=== PATIENT | male | born 1955 | race Caucasian/White ===

== ENCOUNTER → 2016-10-20 | Outpatient (CLI) | payer MEDICARE ==
[2016-10-20 09:16] LABS: ANION GAP 13 (5-19); BLOOD UREA NITROGEN 22 mg/dL (7-20); CALCIUM 9.8 mg/dL (8.4-10.2); CARBON DIOXIDE 25 mmol/L (22-30); CHLORIDE 102 mmol/L (98-107); CHOLESTEROL 216.26 mg/dL (0-200); CREATININE RESULT 1.05 mg/dL (0.52-1.25); Direct HDL 57 mg/dL (>40); GLUCOSE 105 mg/dL (75-110); POTASSIUM 4.9 mmol/L (3.6-5.0); TRIGLYCERIDES 287 mg/dL (<150)
[2016-10-20 09:29] LABS: DIRECT LDL 60 mg/dL (<100)
[2016-10-20 09:30] LABS: VLDL CHOLESTEROL 57.4 mg/dL (10-31)
== END ==
LOC: OD 07:47
PROVIDERS: ATTEND Internal Medicine Cardiovascular Disease
DX: R73.09 Other abnormal glucose (principal); I10 Essential (primary) hypertension; E78.5 Hyperlipidemia, unspecified; I25.119 Atherosclerotic heart disease of native coronary artery with unspecified angina pectoris
CPT/HCPCS: 36415; 80048; 80061; 83036

== ENCOUNTER → 2016-10-23 | Outpatient (CLI) | payer MEDICARE | LOC: OD 10:20 | PROVIDERS: ATTEND Family Medicine | DX: C61 Malignant neoplasm of prostate (principal) | CPT/HCPCS: 36415; 84153 ==

== ENCOUNTER → 2017-01-16 | Outpatient (CLI) | payer MEDICARE ==
[2017-01-16 12:15] LABS: ANION GAP 14 (5-19); BLOOD UREA NITROGEN 18 mg/dL (7-20); CALCIUM 9.5 mg/dL (8.4-10.2); CARBON DIOXIDE 26 mmol/L (22-30); CHLORIDE 101 mmol/L (98-107); CHOLESTEROL 216.28 mg/dL (0-200); Direct HDL 56 mg/dL (>40); GLUCOSE 102 mg/dL (75-110); POTASSIUM 4.5 mmol/L (3.6-5.0); SODIUM 140.8 mmol/L (137-145); TRIGLYCERIDES 249 mg/dL (<150)
[2017-01-16 12:28] LABS: DIRECT LDL 71 mg/dL (<100)
[2017-01-16 12:32] LABS: VLDL CHOLESTEROL 49.8 mg/dL (10-31)
== END ==
LOC: OD 10:22
PROVIDERS: ATTEND Internal Medicine Cardiovascular Disease
DX: I10 Essential (primary) hypertension (principal); I25.10 Atherosclerotic heart disease of native coronary artery without angina pectoris; E78.5 Hyperlipidemia, unspecified; I42.9 Cardiomyopathy, unspecified; R73.09 Other abnormal glucose
CPT/HCPCS: 36415; 80048; 80061; 83036

== ENCOUNTER → 2017-04-22 | Outpatient (CLI) | payer MEDICARE ==
[2017-04-22 09:46] LABS: ANION GAP 13 (5-19); BLOOD UREA NITROGEN 24 mg/dL (7-20); CALCIUM 9.3 mg/dL (8.4-10.2); CARBON DIOXIDE 26 mmol/L (22-30); CHLORIDE 100 mmol/L (98-107); CHOLESTEROL 218.41 mg/dL (0-200); CREATININE RESULT 1.12 mg/dL (0.52-1.25); Direct HDL 56 mg/dL (>40); GLUCOSE 108 mg/dL (75-110); POTASSIUM 5.2 mmol/L (3.6-5.0); SODIUM 138.5 mmol/L (137-145); TRIGLYCERIDES 322 mg/dL (<150)
[2017-04-22 09:57] LABS: DIRECT LDL 60 mg/dL (<100)
[2017-04-22 09:59] LABS: VLDL CHOLESTEROL 64.4 mg/dL (10-31)
== END ==
LOC: OD 08:25
PROVIDERS: ATTEND Internal Medicine Cardiovascular Disease
DX: R73.09 Other abnormal glucose (principal); I10 Essential (primary) hypertension; E78.5 Hyperlipidemia, unspecified; E74.9 Disorder of carbohydrate metabolism, unspecified; I51.7 Cardiomegaly
CPT/HCPCS: 36415; 80048; 80061; 83036

== ENCOUNTER → 2017-06-16 | Outpatient (CLI) | payer MEDICARE | LOC: OD 09:49 | PROVIDERS: ATTEND Urology | DX: C61 Malignant neoplasm of prostate (principal) | CPT/HCPCS: 36415; 84153 ==

== ENCOUNTER → 2017-07-10 | Outpatient (CLI) | payer MEDICARE ==
--- NOTE | 2017-07-10 12:26 | RADIOLOGY REPORT (SQ) ---
EXAM DESCRIPTION: NM WHOLE BODY BONE SCAN COMPLETED DATE/TIME: 07/10/2017 11:57 am REASON FOR STUDY: INCREASING PSA (R97.21), PROSTATE CA (C61), L SPINE PAIN (M54.5) R97.21 RISING PS A FOL TREATMENT FOR MALIGNANT NEOPLASM OF NE COMPARISON: None RADIONUCLIDE AND DOSE: 20.8 millicuries Tc99m MDP. The route of agent administration: Intravenous. ADDITIONAL DRUGS AND DOSES: None. TECHNIQUE: Routine delayed images at 3 hours post radionuclide injection acquired of the bony skelet on including anterior and posterior whole-body projections and additional focused images as needed. LIMITATIONS: None. FINDINGS: BONES: No skeletal areas of increase tracer activity to suggest metastatic disease is seen . There is a focal area of increase tracer activity at the level of the left knee presumably degener ative in nature. No other significant skeletal abnormalities were identified KIDNEYS: Symmetric excretion without obstruction. OTHER: No other significant finding. IMPRESSION: No evidence for skeletal metastatic disease. Other findings as noted above COMMENT: Quality measure 147: TECHNICAL DOCUMENTATION: JOB ID: [id number] [employer]- All Rights Reserved
== END ==
LOC: RAD 08:17
PROVIDERS: ATTEND Urology
DX: C61 Malignant neoplasm of prostate (principal); R97.21 Rising PSA following treatment for malignant neoplasm of prostate; M54.5 Low back pain
CPT/HCPCS: 78306; A9561; Q9969

== ENCOUNTER → 2018-02-01 | Outpatient (CLI) | payer MEDICARE | LOC: OD 09:38 | PROVIDERS: ATTEND Urology | DX: C61 Malignant neoplasm of prostate (principal) | CPT/HCPCS: 36415; 84153 ==

== ENCOUNTER → 2019-11-28 | Outpatient (CLI) | payer MEDICARE ==
--- NOTE | 2019-11-29 15:02 | RADIOLOGY REPORT (SQ) ---
EXAM DESCRIPTION: CTA ABD AORTA AND EXTREMITY COMPLETED DATE/TIME: 11/28/2019 3:55 pm REASON FOR STUDY: I73.9 PERIPHERAL VASCULAR DISEASE, UNSPECIFIED I73.9 PERIPHERAL VASCULAR DISEASE, UNSPECIFIED COMPARISON: None. TECHNIQUE: CT scan of the body and lower extremities performed with and without intravenous contrast using helical scanning technique with dynamic intravenous contrast injection. Images reviewed with l mina, soft tissue, and bone windows. Reconstructed coronal and sagittal MPR images reviewed. All image s stored on PACS. Advanced 3D imaging as volume-rendering, MIPs, SSD performed? yes All CT scanners at this facility use dose modulation, iterative reconstruction, and/or weight based d osing when appropriate to reduce radiation dose to as low as reasonably achievable (ALARA). [facility]: Dose Right [facility]: CareDose [facility]: Dose Right [facility]: Teradose 4D [facility]: INF[employer] CONTRAST TYPE AND DOSE: contrast/concentration: Isovue 350.00 mg/ml; Total Contrast Delivered: 100.0 ml; Total Saline Delivered: 90.0 ml RENAL FUNCTION: Creatinine 1.5 LIMITATIONS: None. FINDINGS: AORTA AND VESSELS: Scattered aortoiliac atherosclerosis. No aneurysm. Moderate stenosis of the SMA secondary to calcified and noncalcified plaque. There is poststenotic dilatation with add itional area of luminal irregularity more distally. [id number] narrowing of the bilateral sachin l ostia. IRVIN is non-opacified at its origin with reconstitution more distally. LUNG BASES: Cardiomegaly. Scattered coronary atherosclerosis. No acute findings. LIVER: Normal size. No masses or dilated ducts. SPLEEN: Normal size. No focal lesions. PANCREAS: No masses. No significant calcifications. No adjacent inflammation or peripancreatic fluid collections. Pancreatic duct not dilated. GALLBLADDER: Surgically absent. ADRENAL GLANDS: No significant masses or asymmetry. RIGHT KIDNEY AND URETER: No mass, calculi or urinary tract obstruction. LEFT KIDNEY AND URETER: No mass, calculi or urinary tract obstruction. RETROPERITONEUM: No retroperitoneal adenopathy, hemorrhage or masses. BOWEL AND PERITONEAL CAVITY: Scattered colonic diverticula. No focal bowel wall thickening. No evid ence of intestinal obstruction. APPENDIX: Dense calcification within the appendiceal lumen. No secondary evidence of acute appendici tis. ABDOMINAL WALL: No masses. No hernias. BONY STRUCTURES: No significant or acute findings. 3-D IMAGING: Confirms the above findings. OTHER: No other significant finding. LOWER EXTREMITIES: RIGHT LEG: ILIAC ARTERIES: There is no significant narrowing within the common iliac artery. Internal iliac ar karley is patent with scattered multifocal plaque. Moderate stenosis of the proximal external iliac ar karley. FEMORAL ARTERIES: Scattered calcified plaque along the posterior wall of the common femoral artery wi th moderate to severe luminal narrowing at the proximal common femoral artery. Profunda origin is oc cluded with reconstitution just past the origin. SFA demonstrates multifocal scattered plaque with m ultifocal areas of [id number] stenosis, greatest at the level of Piter's canal. POPLITEAL ARTERY: Popliteal is patent with mild to moderate luminal stenosis. No aneurysm. TIBIOPERONEAL TRUNK AND RUNOFF VESSELS: Tibioperoneal trunk is patent. Tibials demonstrate patency a t the origin with scattered plaque. Apparent patent three-vessel runoff to the level of the ankle al though evaluation somewhat limited secondary to vessel size. OTHER: No other significant finding. LEFT LEG: ILIAC ARTERIES: Common iliac artery demonstrates multifocal plaque with moderate to severe narrowing distally. Poor opacification of the internal iliac artery. External iliac artery demonstrates scatte red multifocal plaque with [id number]-oz-[id number] stenosis.. FEMORAL ARTERIES: High-grade stenosis of the proximal common femoral artery secondary to bulky calci fied plaque. Mild profunda demonstrates scattered plaque at its origin and is patent. SFA demonstra dayana multifocal scattered plaque with high-grade narrowing at the level of Piter's canal. No aneurys m. POPLITEAL ARTERY: Popliteal is patent with multifocal scattered plaque. No aneurysm. TIBIOPERONEAL TRUNK AND RUNOFF VESSELS: Tibioperoneal trunk is patent. Scattered tibial atherosclero sis with apparent patent three-vessel distal runoff although evaluation somewhat limited secondary to vessel size. OTHER: No other significant finding. IMPRESSION: 1. RIGHT: Extensive atherosclerotic disease with multifocal multilevel narrowing as de tailed above. Inflow demonstrates at least moderate stenosis in the proximal external iliac artery a nd moderate to severe narrowing of the proximal common femoral artery. Multifocal SFA and tibial dis ease with apparent preserved three-vessel runoff. 2. LEFT: Inflow demonstrates moderate to severe narrowing of the distal common iliac artery and hig h-grade stenosis of the proximal common femoral artery secondary to bulky calcified plaque. Scattere d additional multifocal disease with high-grade distal SFA lesion likely. Apparent preserved three-v essel runoff. 3. No evidence of acute intra-abdominal/pelvic process. Additional chronic findings as above. TECHNICAL DOCUMENTATION: JOB ID: [id number] Quality ID # 436: Final reports with documentation of one or more dose reduction techniques (e.g., Au tomated exposure control, adjustment of the mA and/or kV according to patient size, use of iterative reconstruction technique) 2010 [employer]- All Rights Reserved Reading location - IP/workstation name: [facility]aren
== END ==
LOC: RAD 15:15
PROVIDERS: ATTEND Internal Medicine Cardiovascular Disease
DX: I73.9 Peripheral vascular disease, unspecified (principal)
CPT/HCPCS: 75635; 82565

== ENCOUNTER → 2019-12-22 | Outpatient (CLI) | payer MEDICARE ==
--- NOTE | 2019-12-22 12:45 | RADIOLOGY REPORT (SQ) ---
EXAM DESCRIPTION: CTA NECK IMAGES COMPLETED DATE/TIME: 12/22/2019 10:49 am REASON FOR STUDY: I73.9 PERIPHERAL VASCULAR DISEASE, UNSPECIFIED I73.9 PERIPHERAL VASCULAR DISEASE, UNSPECIFIED COMPARISON: None. TECHNIQUE: Axial dynamic scanning technique with dynamic contrast enhancement through the [employer]-precision aircraft systems [employer]er nial carotid and vertebral arteries. Multiplanar reconstruction. 3-D MIPS and Volume-rendered imag es acquired at the workstation and saved to PACS. Images are reviewed in soft tissue, bone, lung w indows. All CT scanners at this facility use dose modulation, iterative reconstruction, and/or weight based d osing when appropriate to reduce radiation dose to as low as reasonably achievable (ALARA). [facility]: Dose Right [facility]: CareDose [facility]: Dose Right [facility]: Teradose 4D [facility]: [employer] CONTRAST TYPE AND DOSE: contrast/concentration: Isovue 350.00 mg/ml; Total Contrast Delivered: 80.0 ml; Total Saline Delivered: 75.0 ml RENAL FUNCTION: Creatinine 1.5 LIMITATIONS: None. FINDINGS: AORTIC ARCH: Normal three-vessel origin. Bilateral subclavian arteries are patent. No d issection. RIGHT CAROTIDS: The right common carotid artery is patent throughout the neck. At the right carotid bifurcation, there is mixed calcific and noncalcific plaque with ulceration and irregularity, best shown on sagittal images 59-64. An ulcerated pocket fills with contrast about 7 m m diameter on sagittal image 61. Overall, about 50% narrowing of the proximal right internal carotid artery at the bifurcation is present. Remainder of the cervical internal carotid artery is normal caliber. No vessel wall irregularity wor risome for dissection. RIGHT VERTEBRAL: Patent, non dominant LEFT CAROTIDS: The left common carotid artery is patent throughout the neck. Of the left carotid bif urcation, dense calcific and noncalcific plaque is present without 50% diameter stenosis of the proxi mal left ICA at the bifurcation, best shown on sagittal reconstruction image 94/146. 50% narrowing o f the proximal external carotid artery is also present. Remainder of the left cervical internal carotid artery is widely patent. No vessel wall irregularity worrisome for dissection LEFT VERTEBRAL: Patent. No dissection. OTHER: There is degenerative change in the cervical spine with high-grade right C3-4 foraminal narrow ing, high-grade left C4-5 and C5-6 foraminal stenosis from facet arthropathy. No neck masses or willian opathy. OTHER: 3-D reconstructions confirm findings. There is moderate atherosclerotic change along the eusebia ateral parasellar carotid arteries best shown on sagittal reconstruction images 68 through 83. IMPRESSION: Ulcerated plaque at the right carotid bifurcation with less than 50% diameter stenosis. Non ulcerated plaque at the left carotid bifurcation with about 50% proximal ICA and 50% proximal lef t ECA stenosis Left vertebral artery dominant COMMENT: Quality ID #[id number]: Measurements of distal internal carotid diameter were used as the denomina tor for stenosis measurement. TECHNICAL DOCUMENTATION: JOB ID: [id number] Quality ID # [id number]: Final reports with documentation of one or more dose reduction techniques (e.g., Au tomated exposure control, adjustment of the mA and/or kV according to patient size, use of iterative reconstruction technique) 2010 [employer]- All Rights Reserved Reading location - IP/workstation name: [email or web address]
== END ==
LOC: RAD 10:22
PROVIDERS: ATTEND Nurse Practitioner Adult Health
DX: I73.9 Peripheral vascular disease, unspecified (principal)
CPT/HCPCS: 70498